=== PATIENT | female | born 1980 | race African-American/Black ===

== ENCOUNTER → 2018-03-15 | Outpatient (CLI) | payer OTHER ==
[2018-03-15 14:00] LABS: BASOPHILS # (AUTO) 0.1 X10^3/uL (0.0-0.1); EOSINOPHILS # (AUTO) 0.4 x10^3/uL (0.0-0.2); EOSINOPHILS % (AUTO) 4.7 % (0.9-2.9); HEMATOCRIT 33.5 % (36.0-47.0); LYMPHOCYTES # (AUTO) 1.8 X10^3/uL (1.3-2.9); LYMPHOCYTES % (AUTO) 24.3 % (21.0-51.0); MEAN CORPUSCULAR HEMOGLOBIN 18.8 pg (27.0-34.0); MEAN CORPUSCULAR HGB CONC 32.7 g/dL (33.0-35.0); MEAN CORPUSCULAR VOLUME 57.6 fL (80.0-100.0); MEAN PLATELET VOLUME 8.8 fL (7.4-11.0); MONOCYTES # (AUTO) 0.7 x10^3/uL (0.3-0.8); NEUTROPHILS # (AUTO) 4.6 x10^3/uL (2.2-4.8); PLATELET COUNT 355 X10^3/uL (150.0-450.0); RED BLOOD COUNT 5.82 X10^6/uL (3.5-5.4); RED CELL DISTRIBUTION WIDTH 19.9 % (11.6-16.5); WHITE BLOOD COUNT 7.5 X10^3/uL (3.6-10.0)
[2018-03-15 14:10] LABS: BILIRUBIN,URINE NEGATIVE (NEGATIVE); BLOOD/HEMOGLOBIN,URINE 2+ (NEGATIVE); GLUCOSE, URINE NEGATIVE (NEGATIVE); KETONES,URINE NEGATIVE (NEGATIVE); LEUKOCYTE ESTERASE ,URINE 1+ (NEGATIVE); NITRITES,URINE NEGATIVE (NEGATIVE); PROTEIN,URINE NEGATIVE (NEGATIVE); UROBILINOGEN,URINE NORMAL (NORMAL)
[2018-03-15 14:11] LABS: APPEARANCE,URINE SLIGHTLY HAZY (CLEAR); COLOR,URINE PALE YELLOW (YELLOW)
[2018-03-15 14:12] LABS: ALANINE AMINOTRANSFERASE 26 Units/L (12-78); ALBUMIN 3.7 g/dL (3.4-5.0); ALKALINE PHOSPHATASE 58 Units/L (46-116); ASPARTATE AMINO TRANSFERASE 13 Units/L (15-37); BLOOD UREA NITROGEN 12 mg/dL (7-18); CALCIUM 8.9 mg/dL (8.5-10.1); CARBON DIOXIDE 28.6 mmol/L (21-32); CHLORIDE 100 mmol/L (98-107); CREATININE 1.01 mg/dL (0.55-1.02); PLATELET MORPHOLOGY COMMENT NORMAL (NORMAL); SODIUM 137 mmol/L (136-145); TOTAL PROTEIN 9.2 g/dL (6.4-8.2); eGFR BLACK RACES > 60 (>60); eGFR NON BLACK RACES > 60 (>60)
[2018-03-15 14:13] LABS: ANISOCYTOSIS 1+; HYPOCHROMASIA 3+; MICROCYTOSIS 3+; OVALOCYTES SLIGHT; POIKILOCYTOSIS SLIGHT
[2018-03-15 14:23] LABS: BACTERIA,URINE NEGATIVE /HPF (NEGATIVE); RBC,URINE 0-2 /HPF (NONE SEEN); SQUAMOUS EPITHELIAL CELL,UR FEW /HPF (NEGATIVE)
[2018-03-15 14:53] LABS: ERYTHROCYTE SEDIMENTATION RATE 23 MM/HOUR (0-20)
--- NOTE | 2018-03-15 15:12 | RAD ---
Exam: Chest two views History: Evaluate for anesthesia risk. Comparison: None Findings: Heart size and pulmonary vasculature within normal limits. Mild interstitial prominence is seen at the lung bases, particularly on the right. This may represent basilar atelectasis. Otherwise lungs are clear. No pleural effusion on either side. Bony thorax is unremarkable as well. Impression: No acute cardiopulmonary abnormality is seen on this exam. Reported By:
== END ==
LOC: LAB 13:25
PROVIDERS: ATTEND Orthopaedic Surgery
DX: Z01.818 Encounter for other preprocedural examination (principal); Z01.810 Encounter for preprocedural cardiovascular examination; Z01.811 Encounter for preprocedural respiratory examination; Z79.899 Other long term (current) drug therapy; Z11.8 Encounter for screening for other infectious and parasitic diseases; B95.7 Other staphylococcus as the cause of diseases classified elsewhere; B95.62 Methicillin resistant Staphylococcus aureus infection as the cause of diseases classified elsewhere; S83.271A Complex tear of lateral meniscus, current injury, right knee, initial encounter; X58.XXXA Exposure to other specified factors, initial encounter
CPT/HCPCS: 36415; 71046; 80053; 81001; 85025; 85652; 87086; 87640; 87641; 93005; 93010

== ENCOUNTER 2018-03-17 07:10 | Day surgery (SDC) | payer OTHER ==
[~2018-03-17 07:10] MED LIST: ANCEF 1 GM IV PREMIX* 1 GM/50 ML BAG IV ONE; D5 LR 1000 ML 1,000 ML IV ONE
[2018-03-17] MEDS ORDERED: ANCEF 1 GM IV PREMIX* 1 GM/50 ML BAG IV ONE (07:30)
[2018-03-17] MEDS ORDERED: FENTANYL INJ 100 mcg ONE (08:45)
[2018-03-17] MEDS ORDERED: BACTROBAN OINT ONE (09:39)
[2018-03-17] MEDS ORDERED: NS IRRIGATION 3000 ML 3,000 ML with ADRENALINE CHL INJ 1 MG IR ONE ×4 (09:58)
[2018-03-17] MEDS ORDERED: MARCAINE 0.25% INJ ONE (10:19)
[2018-03-17] MEDS ORDERED: KENALOG INJ 40 MG IM ONE (10:19)
[2018-03-17] MEDS ORDERED: ZOFRAN INJ 4 MG VIAL IVP PRN (11:05)
[2018-03-17] MEDS ORDERED: BENADRYL INJ 50 MG VIAL IVP PRN (11:05)
[2018-03-17] MEDS ORDERED: REGLAN INJ 10 MG VIAL IVP PRN (11:05)
[2018-03-17] MEDS ORDERED: PHENERGAN INJ 25 MG IVP PRN (11:05)
[2018-03-17] MEDS: DILAUDID INJ IVP PRN ×2 (11:10→11:20)
[2018-03-17] MEDS ORDERED: DILAUDID INJ ONE (11:15)
[2018-03-17] MEDS ORDERED: PERCOCET TAB 5/325 MG PO PRN (11:18)
[2018-03-17 12:32] VITALS: BP 135/74
[2018-03-17] MEDS ORDERED: DIPRIVAN VIAL ONE (15:31)
[2018-03-17] MEDS ORDERED: XYLOCAINE 2 % (PLAIN) ONE (15:31)
[2018-03-17] MEDS ORDERED: VERSED ONE (15:31)
[2018-03-17] MEDS ORDERED: ZOFRAN INJ 4 MG VIAL ONE (15:31)
[2018-03-17] MEDS ORDERED: QUELICIN (OR ANECTINE) ONE (15:31)
[2018-03-17] MEDS ORDERED: SUPRANE IN ONE (15:31)
--- NOTE | 2018-03-17 17:55 | OR.GENERIC ---
Post-Op Note Generic - Post-Op Note Operative Report: DATE OF OPERATION: 03/17/2017 PREOPERATIVE DIAGNOSIS: Right knee lateral meniscal tear. RIGHT knee medial meniscal tear POSTOPERATIVE DIAGNOSIS: Right lateral meniscal tear. 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 Chondromalacia changes of grade 4 of the patellofemoral compartment. full-thickness chondral defect medial femoral condyle. OPERATION PERFORMED: 1. Right knee arthroscopy with partial lateral meniscectomy. 2. Right knee chondroplasty of the medial and patello femoral compartment. 3. RIGHT knee arthroscopic microfracture. ANESTHESIA: ~ General with endotracheal tube intubation. ESTIMATED BLOOD LOSS: ~ Minimal. COMPLICATIONS: ~ None. INDICATIONS FOR OPERATION: ~ The patient is a 37 -year-old female with a history of right knee pain. patient has been seeing orthopedic surgeons in the past for the last 3 years. She has been dealing with RIGHT knee pain. also complains of locking as well as repeated knee effusions. Occasional knee giving away episodes also. She has tried and failed conservative management. She has tried physical therapy, home therapy, unloading brace, heat, ice, weight reduction, walking aids without much support. She has not noticed any improvements with these. She had an magnetic resonance imaging done which showed signal changes in the medial as well as lateral meniscus. Chondromalacia changes were also seen. natural history treatment discussions were done. She wanted to proceed with arthroscopy. . After discussion of the risks and benefits of surgery including but no limited to continued pain, DVT and PE, infection or need for additional surgery, the patient opted to move forward with elective right knee arthroscopy with possible meniscectomy. DESCRIPTION OF OPERATION: ~ The patient was met in the preoperative holding area. Correct patient, correct side, as well as planned procedure was verified. The skin was marked by the many. SHe was also met by Anesthesia. They confirmed correct patient and correct side. At this point, the patient was brought to the operating room and placed on the operative table in the supine position. Care was taken to pad any bony prominences. Two grams of antibiotics, namely Ancef, was given. At this point, anesthesia was induced without issue. The patients correct side was verified. The knee was examined for range of motion and laxity. He was able to extend his knee completely. Stable to ML and AP stress. A nonsterile tourniquet was applied to his thigh. Care was taken to pad the tourniquet well. The right thigh was placed in a arthroscopic thigh mazariegos. the left leg was placed in a well legged mazariegos. Leg was then prepped and draped in usual sterile fashion. Prior to completion of prepping and draping, the foot plate of the bed was dropped such that the patients leg was free. The bed was raised to appropriate height. After prepping and draping, time-out was performed. Correct patient, correct status, as well as planned procedure was again verified. Verification was again made of antibiotics given. A proximal thigh tourniquet was placed and an Esmarch bandage was used to exsanguinate the limb. At this point, a lateral parapatellar incision was planned using the sterile marker. Using the 15 blades, incision was made through skin and underlying subcutaneous tissue, carrying to the capsule. The knee was extended while the arthroscopic obturator was placed through the lateral portal. This was carried up underneath the patient patella. The camera was then placed and correct joint placement was confirmed. The joint was filled with sterile normal saline. suprapatellar pouch showed signs of synovitis and synovitic hypertrophy. Undersurface of the patella showed grade 4 chondromalacia changes. Fibrillations seen throughoutthe medial patellar facet. Full-thickness cartilage loss noted in about 30-40 percent of the surface. The lateral facet of the patella undersurface showed grade 2 chondromalacia changes. Trochlea also shows corresponding grade 4 chondromalacia changes on the medial side and grade 2 chondromalacia changes on the lateral side. Patellar tracking was checked with the range of motion of the knee. Increased medial stress and increased medial contact was noted. The scope was then brought down to lateral gutter and no loose bodies were identified.popliteus was identified and minimal synovitis of the popliteus was noted. scope was brought into the medial compartment, a medial portal was established in usual fashion, that is using a spinal needle to identify appropriate location of the portal followed by 15 blade through the skin and subcutaneous tissue and capsule and followed by the obturator followed by the arthroscopic probe. the medial meniscus was probed . The posterior horn of the medial meniscus was exposed with about 45 of extension as well as valgus stress.the finger in the popliteal fossa was used to push the posterior onto its the operative field. It was probed and no tears were noted. The body and the rest of the anterior horn was probed and no tears were noted. A complete articular cartilage loss was seen on the distal medial femur. It measured about 3 cm into 2 cm. The anterior cruciate ligament was probed and found to be competent. But there were a few fibers hich showed fibrillations. The anterior cruciate ligament did not look very healthy. But it was competent. The posterior cruciate ligament was also probed and found to be competent.the limb was brought into a figure of 4 and the lateral compartment was opened up.It was brought into the lateral compartment such that the meniscus could be evaluated. a tear in the anterior part of the body was noted. It was a radial tear. It was found to be unstable. Using a up-cutting meniscotome partial meniscectomy was completed. The residual meniscus was shaved down to a smooth surface in line with the rest of the meniscus. A probe was used to probe it again and it was found to be stable. Care was taken to remove any loose meniscal tissue from the joint space. Severe chondromalacia noted in the distal femur as well as proximal tibia. 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 using a shaver the fibrillations were debridedon the distal femur as well as proximal tibia. Underlying bleeding surfaces were noted. The complete articular surface on the lateral aspect seemed to be involved. The majority of the articular surface of the distal femur was also involved. at this stage the medial compartmentwas again visualized. Complete cartilage loss was noted on the articular surface of the distal medial femur. It measured about 3 cm into 2 cm. It had a small extension going medially. The edges were probed and the cartilage on the medial aspect of the fracture line was found to be unstable. Using the shaver the defect was divided to the subchondral bone. Again it was probed and the edges were found to be stable. The bone was shaved using a bur. Multiple drill holes were made using the awl. Tourniquet was let down and bleeding was noted. Tourniquet was again inflated. Attention was then noted to patellofemoral joint. The fibrillation as well as the cartilage loss on the medial patellofemoral joint was divided with the shaver. Chondroplasty was completed. Copious amounts of irrigation were then run through the patients joint, again making sure not to leave behind any loose bodies. The tourniquet was released. There was no significant bleeding. Once irrigation was complete, the knee joint was then drained and portals were closed using 3-0 nylon. A dry sterile dressing was applied. The patient was then awakened from anesthesia and transferred to the operating room stretcher. There were no complications. All counts were correct x2 at the end of the case. The wounds were dressed with sterile bandages and a compression wrap from the toes to the mid-thigh was placed. The patient was transferred off of the operating table back to a hospital stretcher and taken to the recovery room in fair condition. There was no evidence of any neuro vascular deficit. POSTOPERATIVE PLAN: The patient will be permitted weightbearing as tolerated and is encouraged to frequently flex and extend the knee as well as his ankle. Crutches will be provided for her if she is unable to ambulate without the use of these assistive devices. Appropriate oral analgesics and oral anti-inflammatory medications will be provided for the patient. The patient was instructed on ice and elevation to the limb. he will follow up in my office in approximately 6 days for postoperative consultation, wound examination, suture removal, and institution of more formalized physical therapy.
== END 2018-03-17 12:35 | disposition home or self-care (01) ==
LOC: SURG1 07:10
PROVIDERS: ATTEND Orthopaedic Surgery
PROC: 0SBC4ZZ Excision of Right Knee Joint, Percutaneous Endoscopic Approach (ICD-10-PCS; principal; 2018-03-17 09:30)
DX: S83.281A Other tear of lateral meniscus, current injury, right knee, initial encounter (principal); S83.241A Other tear of medial meniscus, current injury, right knee, initial encounter; X58.XXXA Exposure to other specified factors, initial encounter; M94.29 Chondromalacia, multiple sites; M94.8X6 Other specified disorders of cartilage, lower leg
CPT/HCPCS: A4222; S0020; J0170; J0330; J0690; J1170; J2001; J2250; J2405; J3010; J3301; J3490; J7120